=== PATIENT | male | born 1950 | race Caucasian/White ===

== ENCOUNTER → 2016-05-18 | Outpatient (CLI) | payer MEDICARE, OTHER ==
[~2016-05-18] MED LIST: AMITRIPTYLINE H50 MG PO; ASPIRIN LO-DOSE81 MG PO; BYSTOLIC2.5 MG PO; FLAX SEED OIL1000 MG PO; GLUCOPHAGE500 MG PO; INSPRA25 MG PO; LANTUS (IN100 UNIT/M SUB-Q; LIPITOR40 MG PO; MULTI VITAMIN1 EACH PO; NORCO 5-325 MG1 TAB PO; TRADJENTA5 MG PO; VASOTEC10 MG PO; VITAMIN B-122000 MC1 PO; VITAMIN B-12500 MCG PO; VITAMIN E400 UNI2 PO
[2016-05-18 13:33] LABS: ANION GAP 15.2 (10.0-19.0); BLOOD UREA NITROGEN 6 mg/dL (6-24); CALCIUM 7.9 mg/dL (8.5-10.5); CHLORIDE 103 mMol/L (96-110); CO2 27 mMol/L (22-32); CREATININE 0.9 mg/dL (0.6-1.3); ESTIMATED GFR (MDRD EQUATION) > 60; POTASSIUM 3.2 mMol/L (3.7-5.1); SODIUM 142 mMol/L (135-145)
== END | disposition disaster alternative care site (69) ==
LOC: LGSOS 13:16
PROVIDERS: Internal Medicine Interventional Cardiology
DX: R42 Dizziness and giddiness (principal)

== ENCOUNTER → 2016-06-27 | Outpatient (CLI) | payer MEDICARE, OTHER ==
[2016-06-27 09:42] LABS: ANION GAP 14.2 (10.0-19.0); BLOOD UREA NITROGEN 14 mg/dL (6-24); CALCIUM 8.9 mg/dL (8.5-10.5); CHLORIDE 105 mMol/L (96-110); CO2 26 mMol/L (22-32); ESTIMATED GFR (MDRD EQUATION) > 60; POTASSIUM 4.2 mMol/L (3.7-5.1); SODIUM 141 mMol/L (135-145)
== END ==
LOC: LGSOS 09:15
PROVIDERS: Internal Medicine Interventional Cardiology
DX: I10 Essential (primary) hypertension (principal)

== ENCOUNTER → 2016-09-22 | Outpatient (CLI) | payer MEDICARE, OTHER | END | disposition disaster alternative care site (69) | LOC: GRAD 12:46 | DX: R20.0 Anesthesia of skin (principal); E11.9 Type 2 diabetes mellitus without complications; R20.2 Paresthesia of skin; R26.81 Unsteadiness on feet; R53.83 Other fatigue; Z91.81 History of falling ==